=== PATIENT | female | born 1995 | race Two or more races ===

== ENCOUNTER 2022-09-23 21:36 | Inpatient (IN) | payer OTHER ==
[~2022-09-23] VITALS: Ht 205.7 cm; Wt 107.5 kg
== END 2022-09-26 17:33 | disposition home or self-care (01) | DRG 101 ==
LOC: ER 21:36 → MEDJ 09-24 12:15
PROVIDERS: ADMIT Internal Medicine; ATTEND Internal Medicine
PROC: BW28ZZZ Computerized Tomography (CT Scan) of Head (ICD-10-PCS; principal; 2022-09-24)
PROC: B030Y0Z Magnetic Resonance Imaging (MRI) of Brain using Other Contrast, Unenhanced and Enhanced (ICD-10-PCS; 2022-09-24)
PROC: 02HV33Z Insertion of Infusion Device into Superior Vena Cava, Percutaneous Approach (ICD-10-PCS; 2022-09-24)
PROC: B343ZZ3 Ultrasonography of Right Common Carotid Artery, Intravascular (ICD-10-PCS; 2022-09-25)
DX: G40.89 Other seizures (principal)
CPT/HCPCS: 70545